=== PATIENT | male | born 1950 | race Asian ===

== ENCOUNTER 2017-10-30 11:00 | Inpatient (IN) | payer OTHER ==
[2017-10-30] VITALS (7 sets, daily range): BP systolic 83–111; BP diastolic 50–80; TEMP 97.9; Ht 175.3 cm; Wt 113.5 kg
[~2017-10-30] VITALS: Ht 175.3 cm; Wt 113.5 kg
[~2017-10-30 11:00] MED LIST: ABILIFY 10MG TAB PO; ABILIFY20 MG PO; ALUMSUS6 PO; AMLO2.5T PO; AMLODIPINE BESYLATE PO; ARIPIPRAZOLE10 MG PO; BENZ1TAB43 PO; CARBAMAZEPIN100 MG PO; CARV12.5 PO; CITA20TA2 PO; DEPAKOTE DR PO; DESYREL PO; DIVALPROEX; DIVALPROEX500 M1 PO; DONE5TAB PO; DULCOLAX5 MG PO; ELIQUIS5 MG PO; FERROUS SULF325 M1 PO; FLUOXETINE20 M1 PO; FLUOXETINE20 MG PO; HALO5INJ3 IM; HYDR25TA57 PO; HYDR25TA60 PO; HYDRALAZINE50 MG PO; HYDROCHLOROT50 MG PO; HYDROCHLOROTHIAZIDE PO; IBUPROFEN PO; KEPPRA 500MG TAB PO; KEPPRA1000 MG PO; KEPPRA750 MG PO; LEVETIRACET100 MG/ML PO; LEXAPRO20 MG PO; LISI10TA11 PO; LISI5TAB10 PO; LORA2INJ21 INJ; MEMA10TA2 PO; MICRO-K10 MEQ PO; MULTIVITAMIN W/IRON PO; NAC 600 PO; NAC600 MG PO; NAMENDA10 MG PO; NITR0.4S2 SL; NITROSTAT0.4 MG SL; OMEPRAZOLE DR PO; OMEPRAZOLE20 M1 PO; PERPHENAZINE4 MG PO; POTA10CA3 PO; PRAVACHOL20 MG PO; PRINIVIL10 MG PO; PSYL0.52C PO; QUET100T2 PO; REMERON SOLTAB15 MG PO; SERT100T PO; SIMV10TA PO; STOOL SOFTNR100 MG PO; THIA100T8 PO; TIZA4TAB5 PO; TRAZ50TA36 PO; TRAZODONE300 MG PO; XARELTO20 MG PO
== END 2017-10-30 12:36 | disposition short-term general hospital (02) | DRG 65 ==
LOC: ICU 11:00
PROVIDERS: ADMIT Family Medicine
DX: I62.01 Nontraumatic acute subdural hemorrhage (principal); G40.802 Other epilepsy, not intractable, without status epilepticus; F33.2 Major depressive disorder, recurrent severe without psychotic features; F02.81 Dementia in other diseases classified elsewhere, unspecified severity, with behavioral disturbance; I62.03 Nontraumatic chronic subdural hemorrhage; Z86.711 Personal history of pulmonary embolism; Z86.73 Personal history of transient ischemic attack (TIA), and cerebral infarction without residual deficits; E78.4 Other hyperlipidemia; I12.9 Hypertensive chronic kidney disease with stage 1 through stage 4 chronic kidney disease, or unspecified chronic kidney disease; N18.3 Chronic kidney disease, stage 3 (moderate); G30.8 Other Alzheimer's disease

== ENCOUNTER 2017-10-30 12:42 | Outpatient (CLI) | payer OTHER | END 2017-10-30 14:45 | disposition short-term general hospital (02) | LOC: AMB 12:42 | DX: I62.01 Nontraumatic acute subdural hemorrhage (principal); G40.802 Other epilepsy, not intractable, without status epilepticus; F33.2 Major depressive disorder, recurrent severe without psychotic features; F02.81 Dementia in other diseases classified elsewhere, unspecified severity, with behavioral disturbance; I62.03 Nontraumatic chronic subdural hemorrhage; Z86.711 Personal history of pulmonary embolism; Z86.73 Personal history of transient ischemic attack (TIA), and cerebral infarction without residual deficits; E78.4 Other hyperlipidemia; I12.9 Hypertensive chronic kidney disease with stage 1 through stage 4 chronic kidney disease, or unspecified chronic kidney disease; N18.3 Chronic kidney disease, stage 3 (moderate); G30.8 Other Alzheimer's disease | CPT/HCPCS: A0425; A0427 ==